=== PATIENT | female | born 1950 | race Caucasian/White ===

== ENCOUNTER → 2017-01-25 | Outpatient (CLI) | payer MEDICARE, OTHER | END | disposition home or self-care (01) | LOC: RADPV 11:16 | PROVIDERS: ATTEND Family Medicine | DX: M71.4 Calcium deposit in bursa (principal); M19.042 Primary osteoarthritis, left hand; M85.842 Other specified disorders of bone density and structure, left hand; M79.89 Other specified soft tissue disorders ==

== ENCOUNTER → 2017-05-30 | Outpatient (CLI) | payer MEDICARE, OTHER | END | disposition home or self-care (01) | LOC: RADPV 14:17 | PROVIDERS: ATTEND Family Medicine | DX: M50.323 Other cervical disc degeneration at C6-C7 level (principal); M43.12 Spondylolisthesis, cervical region; M25.511 Pain in right shoulder | CPT/HCPCS: 72040 ==